=== PATIENT | female | born 1970 | race Caucasian/White ===

== ENCOUNTER 2024-11-04 05:55 | Day surgery (SDC) | payer OTHER ==
[2024-11-04] VITALS (7 sets, daily range): BP systolic 92–130; BP diastolic 66–86
[~2024-11-04] VITALS: Ht 172.7 cm; Wt 73.8 kg
[~2024-11-04 05:55] MED LIST: BUPROPION XL450 MG PO; ESCI20 PO; Estrace Vagin42.5 GM VAG; Inderal 20 mg T20 MG PO; OMEP20ER PO; ROSUVASTATIN CAL5 MG PO; WEGOVY1 MG/0.5 M SC
[2024-11-04] MEDS ORDERED: CeFAZolin Sodium 2,000 MG in NS 100 ML IV SCH (06:25)
[2024-11-04] MEDS ORDERED: Lactated Ringer's 1,000 ML IV SCH ×2 (06:25→09:10)
--- NOTE | 2024-11-04 06:50 | NUR ---
Ambulatory in Day Surgery WITH STEADY GAIT. History, Chart, Medications and Allergies reviewed before start of procedure. Pre-Op teaching done. Pt verbalizes understanding. Patient States Post-Procedure ride home has been arranged WITH SPOUSE. SPOUSE AT BEDSIDE DURING PRE OP ADMISSION. ALL BELONGINGS PLACED UNDER GURN. FIRST IV ATTEMPTED IN RFA. ATTEMPT FAILED DUE TO VEIN BLOWING. PT TOW. 2X2'S AND COBAN PLACED OVER SITE. PT EDUCATED ON POTENTIAL BRUISING AT SITE.
[2024-11-04] MEDS ORDERED: Bupivacaine 0.5% W/EPI 1:200000 SDV 30 ML Vial ONE (06:55)
[2024-11-04] MEDS ORDERED: Midazolam HCl 1MG / ML 2ML Vial ONE (07:28)
[2024-11-04] MEDS ORDERED: Midazolam HCl 1MG / ML 2ML Vial IV ONE (07:30)
[2024-11-04] MEDS ORDERED: HYDROmorphone HCl/Pf 1MG SYR IV PRN ×2 (07:30→09:10)
[2024-11-04] MEDS ORDERED: Lidocaine HCl 1% 5 ML SYR INJ ONE (07:30)
[2024-11-04] MEDS ORDERED: Ondansetron HCl 2 MG / ML 2ML Vial IV PRN ×2 (07:30→09:05)
[2024-11-04] MEDS ORDERED: FentaNYL Citrate 50 MCG/ML 2 ML Injection ONE (07:32)
[2024-11-04] MEDS ORDERED: propofoL 20 ML IV ONE (07:32)
[2024-11-04] MEDS ORDERED: Rocuronium Bromide 10 MG/ML 5ML Injection IV ONE (07:32)
[2024-11-04] MEDS ORDERED: FentaNYL Citrate 50 MCG/ML 2 ML Injection IV PRN ×2 (07:35)
[2024-11-04] MEDS ORDERED: Dexamethasone Sodium Phosphate 4 MG/ML 5ML VIAL IV PRN (07:35)
[2024-11-04] MEDS ORDERED: Morphine Sulfate 4 MG/1 ML Injection IV PRN (07:35)
[2024-11-04] MEDS ORDERED: Albuterol 2.5 MG/3 ML VIAL INH PRN (07:35)
[2024-11-04] MEDS ORDERED: Dexamethasone Sod Phos 10 MG/ML 1ML VIAL ONE (07:40)
[2024-11-04] MEDS ORDERED: Ondansetron HCl 2 MG / ML 2ML Vial ONE (07:40)
[2024-11-04] MEDS ORDERED: Ketorolac Tromethamine 30mg Vial ONE (08:46)
[2024-11-04] MEDS ORDERED: Sugammadex Sodium 200 MG/2ML SDV (100 MG/ML) ONE (08:47)
--- NOTE | 2024-11-04 08:59 | NUR ---
11/04/24 0859 Stone,Monie SHAH REMOVED END OF CASE 100ML OF YELLOW URINE
[2024-11-04] MEDS ORDERED: BuPROPion HCl 75 MG Tab PO SCH (09:00)
[2024-11-04] MEDS ORDERED: Propranolol HCL 20 MG TAB PO SCH (09:00)
[2024-11-04] MEDS ORDERED: Rosuvastatin Calcium 10 MG Tab PO SCH (09:00)
[2024-11-04] MEDS ORDERED: Citalopram Hydrobromide 20 MG Tab PO SCH (09:00)
[2024-11-04] MEDS ORDERED: OxyCODONE HCL 5 MG TAB PO PRN (09:05)
[2024-11-04] MEDS ORDERED: Acetaminophen 500 MG Tab PO PRN (09:05)
[2024-11-04] MEDS ORDERED: Ondansetron 4 MG TAB PO PRN (09:05)
[2024-11-04] MEDS ORDERED: Simethicone 80 MG Chew PO PRN (09:05)
[2024-11-04] MEDS ORDERED: Naloxone HCl 0.4MG / ML 1ML Vial IV PRN (09:05)
[2024-11-04] MEDS ORDERED: DiphenhydrAMINE HCL 25 MG Cap PO PRN (09:05)
[2024-11-04] MEDS ORDERED: HYDROmorphone HCl/Pf 1MG SYR ONE ×2 (09:10→09:32)
[2024-11-04] MEDS ORDERED: Metoclopramide HCl 5MG / ML 2ML Vial IV PRN (09:10)
[2024-11-04] MEDS ORDERED: Metoclopramide HCl 10 MG Tab PO PRN (09:10)
[2024-11-05] MEDS ORDERED: Omeprazole 20 MG CapCR PO SCH (06:00)
== END 2024-11-04 14:45 | disposition home or self-care (01) ==
LOC: ORSCMMR 05:55 → ORD 07:30 → ORSCMMR 07:30 → BC 10:04 → ORSCMMR 14:45
PROVIDERS: Obstetrics & Gynecology
PROC: 8E0W4CZ Robotic Assisted Procedure of Trunk Region, Percutaneous Endoscopic Approach (ICD-10-PCS; principal; 2024-11-04 07:30)
PROC: 0UT7FZZ Resection of Bilateral Fallopian Tubes, Via Natural or Artificial Opening With Percutaneous Endoscopic Assistance (ICD-10-PCS; principal; 2024-11-04 07:30)
PROC: 0UT9FZZ Resection of Uterus, Via Natural or Artificial Opening With Percutaneous Endoscopic Assistance (ICD-10-PCS; principal; 2024-11-04 07:30)
PROC: 0UT2FZZ Resection of Bilateral Ovaries, Via Natural or Artificial Opening With Percutaneous Endoscopic Assistance (ICD-10-PCS; principal; 2024-11-04 07:30)
DX: N80.03 Adenomyosis of the uterus (principal); Z91.89 Other specified personal risk factors, not elsewhere classified; D25.0 Submucous leiomyoma of uterus; N83.8 Other noninflammatory disorders of ovary, fallopian tube and broad ligament; K66.0 Peritoneal adhesions (postprocedural) (postinfection); I10 Essential (primary) hypertension; Z79.899 Other long term (current) drug therapy; Z80.3 Family history of malignant neoplasm of breast; Z80.52 Family history of malignant neoplasm of bladder; Z87.891 Personal history of nicotine dependence; F41.8 Other specified anxiety disorders
CPT/HCPCS: 88307; A9270; J0690; J1100; J1171; J1885; J2250; J2405; J2704; J3010; J7120